=== PATIENT | female | born 1965 | race Caucasian/White ===

== ENCOUNTER → 2019-04-01 | Outpatient (CLI) | payer OTHER ==
[2013-10-29 21:14] VITALS: BP 148/69
[~2019-04-01] MED LIST: nexium; zomig
--- NOTE | 2019-04-01 17:00 | KCIC ---
MR of the left hip HISTORY: Left hip pain after a fall 2 weeks ago. TECHNIQUE: Routine multiplanar sequences are obtained. FINDINGS: Left hip DJD. Acetabula protrusio is noted. No evidence of labral tear or detachment. No evidence of femoral head osteonecrosis. Gluteus minimus and gluteus medius tendon attachments are intact. Hamstring tendon attachment is intact. Iliopsoas tendon insertion is intact. Rectus femoris tendon attachment is intact. Marrow edema is identified within the left pubic bone and adjacent left pubic rami. Edema also identified within the adjacent muscle tissue. No visible fracture line. Large [id number] coronal survey sequence demonstrates degenerative change at the contralateral hip as well with probable acetabula protrusio. Small hyperintense T2 lesion within the right adnexal area, probably a 16 mm ovarian cyst. IMPRESSION: 1. Marrow edema within the left pubic bone and adjacent pubic rami. Given the history of trauma, this most likely represents a marrow contusion or nondisplaced fracture. 2. Left hip DJD with acetabular protrusio. Similar findings are seen at the contralateral hip on the survey sequence. 3. Suspect 16 mm right ovarian cyst, could further evaluate with ultrasound as indicated. Electronically signed by: Manuel Mahan MD (04/01/2019 4:57 PM) [facility]
== END | disposition home or self-care (01) ==
LOC: KCIC MRI 15:38
PROVIDERS: ATTEND Orthopaedic Surgery Adult Reconstructive Orthopaedic Surgery
DX: M17.12 Unilateral primary osteoarthritis, left knee (principal); W19.XXXA Unspecified fall, initial encounter; Y93.89 Activity, other specified; Y92.89 Other specified places as the place of occurrence of the external cause; Y99.8 Other external cause status
CPT/HCPCS: 73721

== ENCOUNTER → 2019-04-26 | Outpatient (CLI) | payer OTHER ==
[2013-10-29 21:14] VITALS: BP 148/69
--- NOTE | 2019-04-26 15:42 | KCIC ---
INDICATION: Follow-up of right ovarian cystic lesion COMPARISON: MRI from April 01, 2019 TECHNIQUE: Grayscale and color ultrasound images uterus and adnexa. Transabdominal and transvaginal images obtained. Transvaginal images were needed to better visualize structures that were limited on transabdominal imaging. FINDINGS: History of hysterectomy. Right Ovary: 34 x 24 x 24 mm. Left Ovary: 24 x 16 x 13 mm. Vascular flow identified to bilateral ovaries. 27 x 22 mm cystic lesion right ovary. IMPRESSION: * Cystic lesion is identified at the right ovary and appears increased in size. Continued follow-up will be needed to ensure no growth given this finding. Electronically signed by: Slava Dai MD (04/26/2019 3:40 PM) [facility] [place]
== END | disposition home or self-care (01) ==
LOC: KCIC US 14:06
PROVIDERS: ATTEND Family Medicine
DX: N83.8 Other noninflammatory disorders of ovary, fallopian tube and broad ligament (principal)
CPT/HCPCS: 76830; 76856